=== PATIENT | male | born 1985 | race Caucasian/White ===

== ENCOUNTER 2020-02-26 17:57 | Inpatient (IN) | payer OTHER, SELFPAY ==
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
[2020-02-26 18:31] VITALS: BP 131/89; PULSE 91; RESP 18; TEMP 36.2; O2SAT 100; BMI 23.0
[2020-02-26 19:12] LABS: Basophils # 0.1 10^3/uL (0.0-0.1); Basophils % 0.5 %; Eosinophils # 0.3 10^3/uL (0.0-0.8); Eosinophils % 2.6 %; Hematocrit 47.8 % (42.0-52.0); Hemoglobin 15.3 g/dL (11.7-16.6); Lymphocytes # 2.6 10^3/uL (0.8-4.8); Lymphocytes % 23.3 %; Mean Corpuscular Hemoglobin 30.1 pg (28.0-34.0); Mean Corpuscular Volume 94.1 fL (80-94); Monocytes % 8.8 %; Neutrophils # 7.08 10^3/uL (1.8-7.7); Neutrophils % 64.6 %; Nucleated Red Blood Cells % 0 %; Platelet Count 331 10^3/cmm (130-400); Red Blood Count 5.08 10^6/uL (4.1-5.3); Red Cell Distribution Width 12.9 % (12.1-15.1)
[2020-02-26 19:31] LABS: Alanine Aminotransferase 29 U/L (0-41); Albumin Level 4.6 g/dL (3.5-5.2); Alkaline Phosphatase 138 IU/L (40-130); Anion Gap 13.9 (5-19); Aspartate Amino Transferase 22 U/L (0-40); Blood Urea Nitrogen 13 mg/dL (6-20); Calcium 9.6 mg/dL (8.5-10.5); Carbon Dioxide 28 mmol/L (22-29); Chloride 102 mmol/L (98-107); Globulin 2.7 g/dL (1.3-4.6); Glomerular Filtration Rate 77.6 mL/min (90-130); Glucose 106 mg/dL (65-115); Osmolality Calculated 291 mOsm/kg (285-295); Potassium 3.9 mmol/L (3.5-5.1); Sodium 140 mmol/L (136-145); Total Bilirubin 0.4 mg/dL (0.15-1.2); Total Protein 7.3 g/dL (6.6-8.7)
[2020-02-26 19:33] LABS: Acetaminophen < 5.0 ug/mL (10-30); Alcohol Level < 10 mg/dL (0-10); Salicylate < 0.3 mg/dL (3-10)
[2020-02-26 20:09] LABS: Amphetamines Screen Urine Positive (Negative); Barbiturates Screen Urine Negative (Negative); Benzodiazepines Screen Urine Negative (Negative); Cocaine Screen Urine Negative (Negative); Opiate Screen Urine Negative (Negative); PCP Screen Urine Negative (Negative); THC Screen Urine Positive (Negative)
[2020-02-26 20:14] LABS: Urine Appearance Cloudy (CLEAR); Urine Color Yellow (Yellow)
[2020-02-26 20:15] LABS: Add Urine Microscopic? YES; Bilirubin Urine Neg (Negative); Blood Urine 2+ (Negative); Glucose Urine UA Norm (Normal); Ketones Urine Negative (Negative); Leukocyte Esterase Urine Trace (Negative); Nitrate Urine Negative (Negative); Protein Urine Trace (Negative); Urobilinogen Urine Norm (Negative); pH Urine 8 (5-7)
[2020-02-26 20:17] LABS: Amorphous Sediment Urine 2+ /hpf; RBC Urine 0-4 /hpf (0-2); Squamous Epithelial Cell Urine 0-4 /hpf (0-5); WBC Urine 0-4 /hpf (0-5)
[2020-02-26 20:18] LABS: Add Urine Culture? Yes; Bacteria Urine 2+ /hpf
[2020-02-26 21:30] VITALS: BP 140/79; PULSE 84; RESP 14; O2SAT 99
[2020-02-26 22:01] VITALS: BP 121/80; PULSE 106; RESP 18; TEMP 36.8; O2SAT 94
[2020-02-26] MEDS: acetaminophen 325 mg Tablet 650 MG PO (22:44)
[2020-02-27 06:00] VITALS: BP 115/71; PULSE 67; RESP 16; TEMP 36.6; O2SAT 98
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
[2020-02-27 14:00] VITALS: BP 119/77; PULSE 89; RESP 16; TEMP 36.7; O2SAT 96
[2020-02-27] MEDS: nicotine 2 mg Gum BUCCAL ×3 (15:03→19:47)
[2020-02-27] MEDS: acetaminophen 325 mg Tablet 650 MG PO (18:29)
[2020-02-27] MEDS: trazodone 50 mg Tablet PO (20:35)
[2020-02-27] MEDS: hyDROXYzine 25 mg Capsule 50 MG PO (20:35)
[2020-02-27 20:40] VITALS: BP 119/71; PULSE 87; RESP 17; TEMP 36.4; O2SAT 98
[2020-02-28 06:00] VITALS: BP 112/59; PULSE 109; RESP 18; TEMP 37.6; O2SAT 96
--- NOTE | 2020-02-28 10:38 | PM.NPN ---
Subjective NPU Subjective: Interval history: Odilon presented today reporting that he is fine with being here on out does want to get out to manage some things. He did not want to allow us to contact his brother to get some sense that the job he has been reporting is a real thing. We discussed the fact that we would not share information but only verify the credibility of his plan. He reports he is eating and sleeping fine. Mental Status Exam MSE Comments: This is a well-nourished, well-developed white male with adequate dress, grooming and eye contact. He has notable ecchymosis around his left eye and on his left eyelids. No abnormal movements except for mild psychomotor retardation. Cooperative with exam in mild distress. Speech was decreased rate likely described as better, Affect irritable. Thought process organized. Thought content: Patient denied any suicidal or homicidal ideations, there were no delusions reported or noted, he denied any auditory or visual hallucinations. Attention and concentration were intact and memory was unreliable but none were formally tested. He is alert and oriented x3. Insight and judgment appear limited, impulse control is limited. Vitals/I&O/Wt Last Vital Signs Temp 98.9 F 02/28/20 19:44 Pulse 86 02/28/20 19:44 Resp 16 02/28/20 19:44 BP 174/50 02/28/20 19:44 Pulse Ox 98 02/28/20 19:44 Weight last 48 hrs Weight 72.121 kg Data NPU : 02/26/20 18:52 02/26/20 18:52 Micro: Microbiology 02/26/20 18:53 Urine Culture - Preliminary Urine,Clean Catch Microbiology 02/26/20 18:53 Urine,Clean Catch Urine Culture - Preliminary A&P Additional A&P Information (1) Methamphetamine use: (2) Suicidal ideation: (3) Cannabis use disorder, moderate, in early remission, in controlled environment, dependence: This is a 34-year-old white male who presented for treatment with the police secondary to affidavits endorsing suicidal thoughts and bizarre behavior with a UDS positive for methamphetamine and cannabis who denies any interest or need for treatment. 1. Continue current medication. We will continue to explore the need for psychotropic medications. 2. Continue every 15 minute checks for safety. 3. Encourage individual, group and milieu therapy. 4. Encourage follow-up and sober living treatment at the highest level of care to which he is willing to commit. 5. We will monitor and assess for credible lethality. Involuntary Hold Information 96 Hour Hold: 96 Hour Involuntary Admission: No Attestations NPU Medical Necessity Statement*: Inpatient hospitalization is medically necessary and the clinically appropriate intervention at this time. We will initiate and monitor medications and make changes as indicated. Likely length of stay on 3 days. He is not interested in treatment and we will ensure that he is not demonstrating any signs of credible lethality prior to discharge. Coding Level of Care Code Acute Prestressed Concrete Laborer for Kamlesh Burgess
[2020-02-28 14:00] VITALS: BP 119/65; PULSE 84; RESP 18; TEMP 36.3
[2020-02-28] MEDS: nicotine 21 mg Patch 1 PATCH TRANSDERMA (16:56)
[2020-02-28 19:44] VITALS: BP 174/50; PULSE 86; RESP 16; TEMP 37.2; O2SAT 98
[2020-02-28] MEDS: trazodone 50 mg Tablet PO (20:26)
[2020-02-28] MEDS: hyDROXYzine 25 mg Capsule 50 MG PO (20:26)
[2020-02-28] MEDS: guaiFENesin 100 mg/5 mL UDC 10 mL 200 MG PO (22:30)
[2020-02-29 06:00] VITALS: BP 102/64; PULSE 80; RESP 16; TEMP 36.8; O2SAT 98
[2020-02-29] MEDS: nicotine 21 mg Patch 1 PATCH TRANSDERMA (11:57)
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
[2020-02-29 12:26] VITALS: BP 102/64; PULSE 80; RESP 16; TEMP 36.8; O2SAT 98
--- NOTE | 2020-02-29 15:11 | PC.RESP ---
SMOKING CESSATION INFORMATION SENT TO PATIENT.
== END 2020-02-29 13:48 | disposition home or self-care (01) | DRG 897 ==
LOC: ER 20:27 → NP 21:02
PROVIDERS: Family Medicine; Admitting Provider Psychiatry & Neurology Psychiatry; Visit Provider Psychiatry & Neurology Psychiatry
DX: F15.10 Other stimulant abuse, uncomplicated (principal); R45.851 Suicidal ideations; F12.20 Cannabis dependence, uncomplicated; F17.210 Nicotine dependence, cigarettes, uncomplicated
CPT/HCPCS: 12345; 36415; 70450; 70486; 80053; 80306; 80307; 81001; 85025; 87086; 99284

== ENCOUNTER 2020-12-16 22:38 | Emergency (ER) | payer OTHER, SELFPAY ==
[2020-12-16 23:07] VITALS: BP 199/74; PULSE 111; RESP 18; TEMP 36.5; O2SAT 99; BMI 21.1
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
[2020-12-16 23:58] VITALS: BP 129/74; PULSE 111; RESP 18; O2SAT 99
[2020-12-17 00:09] VITALS: BP 129/74; PULSE 111; RESP 18; O2SAT 99
== END 2020-12-17 00:10 | disposition home or self-care (01) ==
PROVIDERS: Emergency Provider Nurse Practitioner Family
DX: F15.10 Other stimulant abuse, uncomplicated (principal)
CPT/HCPCS: 99283